=== PATIENT | female | born 1940 | race Caucasian/White ===

== ENCOUNTER 2018-06-28 11:59 | Outpatient (REF) | payer OTHER, SELFPAY ==
[2018-06-28 19:12] LABS: HCT 44.1 % (36.0-46.0); HGB 14.4 g/dL (12.0-15.5); Mean Corp. HGB Concentration 32.7 g/dL (32.0-36.0); Mean Corpuscular Volume 91.9 fL (80-95); Mean Platelet Volume 12.1 fL (8.0-11.0); Platelet Count 223 x1000/uL (130-400); RBC Distribution Width 13.3 % (11.7-14.6); White Blood Cell Count 5.26 k/cumm (4.4-10.8)
[2018-06-28 19:41] LABS: ALT 30 U/L (12-78); Anion Gap 7.2 mmol/L (3-11); BUN 14 mg/dL (7-18); CO2 28.8 mmol/L (21.0-32.0); CREATININE 0.89 mg/dL (0.55-1.02); Calcium 8.7 mg/dL (8.5-10.1); Chloride 105 mmol/L (98-107); Glucose 91 mg/dL (70-100); LDL CHOLESTEROL 118 mg/dL (<100); Potassium 4.1 mmol/L (3.5-5.1); Sodium 141 mmol/L (136-145); TSH 4.16 uIU/mL (0.358-3.74)
== END 2018-06-28 12:19 ==
LOC: NCHCN 11:59
PROVIDERS: PCP Internal Medicine; Visit Provider Internal Medicine
DX: E03.9 Hypothyroidism, unspecified (principal); E78.5 Hyperlipidemia, unspecified; M81.0 Age-related osteoporosis without current pathological fracture
CPT/HCPCS: 80048; 83721; 85027; 84443; 84460

== ENCOUNTER 2018-12-10 14:57 | Outpatient (REF) | payer OTHER, SELFPAY ==
[2018-12-10 19:33] LABS: HCT 43.7 % (36.0-46.0); HGB 14.3 g/dL (12.0-15.5); Mean Corp. HGB Concentration 32.7 g/dL (32.0-36.0); Mean Corpuscular Hemoglobin 29.7 pg (27.0-33.0); Mean Corpuscular Volume 90.9 fL (80-95); Mean Platelet Volume 12.9 fL (8.0-11.0); Platelet Count 190 x1000/uL (130-400); RBC 4.81 m/cumm (4.00-5.20); RBC Distribution Width 13.4 % (11.7-14.6); White Blood Cell Count 6.79 k/cumm (4.4-10.8)
[2018-12-10 19:50] LABS: Anion Gap 10.5 mmol/L (3-11); BUN 13 mg/dL (7-18); CO2 26.5 mmol/L (21.0-32.0); Calcium 8.5 mg/dL (8.5-10.1); Chloride 101 mmol/L (98-107); Estimated GFR 47.79 (mL/min/1.73m2); Glucose 169 mg/dL (70-100); Potassium 3.8 mmol/L (3.5-5.1); Sodium 138 mmol/L (136-145)
== END 2018-12-10 15:17 ==
LOC: NCHCN 14:57
PROVIDERS: PCP Internal Medicine; Visit Provider Nurse Practitioner Family
DX: R10.30 Lower abdominal pain, unspecified (principal); R31.9 Hematuria, unspecified
CPT/HCPCS: 80048; 85027; 87086

== ENCOUNTER 2019-07-06 13:04 | Outpatient (REF) | payer OTHER, SELFPAY ==
[2019-07-06 20:42] LABS: ALT 23 U/L (14-59); Anion Gap 8.6 mmol/L (3-11); BUN 13 mg/dL (7-18); CO2 30.4 mmol/L (21.0-32.0); Calcium 9.2 mg/dL (8.5-10.1); Chloride 104 mmol/L (98-107); Glucose 86 mg/dL (74-106); LDL CHOLESTEROL 121 mg/dL (<100); Potassium 4.3 mmol/L (3.5-5.1); Sodium 143 mmol/L (136-145); TSH 3.96 uIU/mL (0.36-3.74)
== END 2019-07-06 13:24 ==
LOC: NCHCN 13:04
PROVIDERS: PCP Internal Medicine; Visit Provider Internal Medicine
DX: E03.9 Hypothyroidism, unspecified (principal); M81.0 Age-related osteoporosis without current pathological fracture
CPT/HCPCS: 80048; 83721; 84443; 84460

== ENCOUNTER 2020-07-12 13:52 | Outpatient (REF) | payer OTHER, SELFPAY ==
--- OUTSIDE RECORDS SUMMARY | 2020-07-12 13:59 | XMS_ITS ---
:1940 Author Care Team Providers Name Role Phone PATI ADAMS NP Primary Care Provider [phone] MELISSA BURGESS General Surgeon [phone] Allergies Code Code System Name Reaction Severity Status Onset 5640 RxNorm Ibuprofen ? ? Active ? Medications Name Status Start Date Stop Date ? ? alendronate 70 mg tablet Completed 02/09/2019 020 Take 1 tablet every week by oral route. lovastatin 20 mg tablet Completed 02/09/2019 05/07/20 20 Take 1 tablet every day by oral route. Macrobid 100 mg capsule Completed ? 01/22/20 19 Take 1 capsule twice a day by oral route. Nasonex 50 mcg/actuation Binford Completed ? 0 01/21/2019 Binford 2 sprays twice a day by intranasal route. Nichols 3 Completed ? 01/21/2019 Synthroid 25 mcg tablet Completed 02/09/2019 05/07/20 20 Take 1 tablet every day by oral route. Notes: no meds per pt report Problems Name Status Onset Date Source ? Hypothyroidism Active 12/23/2018 ? Hyperlipidemia Active 12/23/2018 ? 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 Bleeding Hemorrhoids Active 12/23/2018 ? 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 Blood in Urine Active 12/23/2018 ? Osteoporosis Active 12/23/2018 ? Left Lower Quadrant Pain Active 12/23/2018 ? Family History of Breast Cancer Active 12/23/2018 ? History of Appendectomy Active 12/23/2018 ? Bunion Active 12/23/2018 ? Procedures Date Name Performed by ? 01/23/2019 Laparoscopy Diagnostic Information not a vailable Notes: small bowel obstruction 01/20/2019 Colonoscopy Information not avai lable Notes: Sigmoid diverticul osis, sigmoid stricture; 08/06/2007 normal examination except surgical changes in the cecum 04/03/1997 Appendectomy Information not avai lable Notes: acute appendicitis with periap pendicocele and cecal mass 05/07/2020 XR, Finger(s), 2 or More View [facility] Radiology (Internal) [address] [place] [address] (Work Place) 06/04/2020 XR, Finger(s), 2 or More View [facility] Radiology (Internal) [address] [place] [address] (Work Place) 07/02/2020 XR, Finger(s), 2 or More View [facility] Radiology (Internal) [address] [place] [address] (Work Place) Results Lab Results Date Name Specimen Result Interpretation Description Value Range Status Address ? 02/08/2019 CBC W/ Auto BLD - Wbc 6.6 5.0-10.0 Final Boyd Diff 10*3/uL 10*3/uL [facility] L ab (Internal) : [address] ? ? BLD - Rbc 4.52 4.10-5.30 Final Boyd 10*6/uL 10*6/uL [facility] L ab (Internal) : [address] ? ? BLD - Hgb 13.5 g/dL 12.0-16.0 Final Nort h g/dL [facility] L ab (Internal) : [address] ? ? BLD - Hct 41.3 % 37.0-47.0 Final [facility] L ab (Internal) : [address] ? ? BLD - Mcv 91.4 fL 80.0-96.0 Final [facility] L ab (Internal) : [address] ? ? BLD - Mch 29.9 pg 26.0-32.0 Final [facility] L ab (Internal) : [address] ? ? BLD - Mchc 32.7 g/dL 31.0-35.0 Final Nort h g/dL [facility] L ab (Internal) : [address] ? ? BLD - Rdw 13.7 % 11.5-14.5 Final [facility] L ab (Internal) : [address] ? ? BLD - Plt 224 130-450 Final North 10*3/uL 10*3/uL [facility] : [address] 02/08/2019 CMP, Serum S High g/r 117 mg/dL 74-106 Final North or Plasma mg/dL [facility] L ab (Internal) : [address] ? ? S - Bun 9 mg/dL 7-17 Final [facility] mg/dL [facility] L ab (Internal) : [address] ? ? S - Crea 0.60 0.52-1.04 Final North mg/dL mg/dL [facility] L ab (Internal) : [address] ? ? S - Ca 9.1 mg/dL 8.4-10.2 Final [facility] mg/dL [facility] L ab (Internal) : [address] ? ? S - Na 138 137-145 Final North mmol/L mmol/L [facility] L ab (Internal) : [address] ? ? S - K 3.9 3.5-5.1 Final [facility] mmol/L mmol/L [facility] L ab (Internal) : [address] ? ? S - Cl 104 98-107 Final [facility] mmol/L mmol/L [facility] L ab (Internal) : [address] ? ? S - Tco2 25.0 22.0-30.0 Final [facility] mmol/L mmol/L [facility] L ab (Internal) : [address] ? ? S - Tp 6.9 g/dL 6.3-8.2 Final [facility] g/dL [facility] L ab (Internal) : [address] ? ? S - Alb 4.1 g/dL 3.5-5.0 Final [facility] g/dL [facility] L ab (Internal) : [address] ? ? S - Tbil 1.0 mg/dL 0.2-1.3 Final [facility] mg/dL [facility] L ab (Internal) : [address] ? ? S - Alp 50 U/L 38-126 Final [facility] U/L [facility] L [facility] (Internal) : [address] ? ? S - Alt (Sgpt) 24 U/L 9-52 U/L Final [facility] L ab (Internal) : [address] ? ? S - Ast (Sgot) 22 U/L 14-36 U/L Final No rth [facility] L ab (Internal) : [address] 02/08/2019 Lipase, S - Lip 91 U/L 23-300 Final Boyd Serum or U/L [facility] L ab (Internal) : [address] 02/08/2019 Differential BLD High Polys 80 % 40-75 % Final Boyd , Manual, [facility] L ab (Internal) : [address] ? ? BLD - Bands 0 % 0-5 % Final [facility] L ab (Internal) : [address] ? ? BLD Low Lymphs 10 % 20-50 % Final [facility] L ab (Internal) : [address] ? ? BLD - Poinsett 9 % 2-10 % Final [facility] L ab (Internal) : [address] ? ? BLD - Eos 1 % 0-6 % Final [facility] L ab (Internal) : [address] ? ? BLD - Baso 0 % 0-1 % Final [facility] L ab (Internal) : [address] ? ? BLD - Atyp Lymph 0 % ? Final [facility] L ab (Internal) : [address] ? ? BLD - Plts, Est. adequate adequate Final N orth [facility] L ab (Internal) : [address] ? ? BLD - RBC normal normal Final [facility] L ab (Internal) : [address] 02/08/2019 Neutrophil BLD - Anc-manual 5.27 ? Marcela wilcox [facility] Count, 10*3/uL [facility] Lab (Anc), Blood (Int ernal): [address] 02/08/2019 Partial BLD - APTT (Op) 23 s 22-35 s Final Boyd Thromboplast Coun try in Time Hospital Lab (Internal) : [address] 02/08/2019 Prothrombin BLD - Pt 10.4 S 9.1-11.7 Final Boyd Time [facility] L ab (Internal) : [address] ? ? BLD - Inr 1.1 ? Final [facility] L ab (Internal) : [address] 02/08/2019 Troponin I, S - Trop <0.06 0.00-0.06 Final [facility] Serum or NG/mL NG/mL [facility] L ab (Internal) : [address] 02/08/2019 Urinalysis, UR - UA-color yellow pale Final Boyd Dipstick, yellow [facility] Lab (Internal) : [address] ? ? UR - UA-appear clear clear Final [facility] L ab (Internal) : [address] ? ? UR - UA-spec 1.010 1.003-1.0 Final [facility] Grav [address] [place] [address] L ab (Internal) : [address] ? ? UR - UA-pH 7.0 [pH] 4.6-8.0 Final Boyd [pH] [facility] L ab (Internal) : [address] ? ? UR - UA-leuk negative negative Final Nort h [facility] L ab (Internal) : [address] ? ? UR - UA-nitrite negative negative Final N orth [facility] L ab (Internal) : [address] ? ? UR - UA-prot negative negative Final [facility] L ab (Internal) : [address] ? ? UR - UA-gluc negative negative Final [facility] L ab (Internal) : [address] ? ? UR ABNORMAL UA-ketone 1+ negative Final No rth [facility] L ab (Internal) : [address] ? ? UR - UA-urobil normal normal Final [facility] L ab (Internal) : [address] ? ? UR - UA-bili negative negative Final [facility] L ab (Internal) : [address] ? ? UR - UA-blood negative negative Final [facility] (Internal) : [address] 01/24/2019 BMP, Serum S - g/r 96 mg/dL 74-106 Final North or Plasma mg/dL [facility] L [facility] (Internal) : [address] ? ? S Low Bun 5 mg/dL 7-17 Final [facility] mg/dL [facility] L [facility] (Internal) : [address] ? ? S - Crea 0.60 0.52-1.04 Final [facility] mg/dL mg/dL [facility] L ab (Internal) : [address] t ? ? S Low Ca 8.1 mg/dL 8.4-10.2 Final [facility] mg/dL [facility] (Internal) : [address] ? ? S - Na 139 137-145 Final North mmol/L mmol/L [facility] (Internal) : [address] ? ? S - K 3.5 3.5-5.1 Final [facility] mmol/L mmol/L [facility] L ab (Internal) : [address] ? ? S - Cl 102 98-107 Final [facility] mmol/L mmol/L [facility] L ab (Internal) : [address] t ? ? S High Tco2 32.0 22.0-30.0 Final [facility] mmol/L mmol/L [facility] L ab (Internal) : [address] 01/23/2019 BMP, Serum S High g/r 109 mg/dL 74-106 Final [facility] or Plasma mg/dL [facility] L ab (Internal) : [address] ? ? S Low Bun 6 mg/dL 7-17 Final [facility] mg/dL [facility] L ab (Internal) : [address] ? ? S - Crea 0.80 0.52-1.04 Final [facility] mg/dL mg/dL [facility] L ab (Internal) : [address] ? ? S Low Ca 8.2 mg/dL 8.4-10.2 Final [facility] mg/dL [facility] L ab (Internal) : [address] ? ? S - Na 138 137-145 Final [facility] mmol/L mmol/L [facility] L ab (Internal) : [address] ? ? S - K 3.9 3.5-5.1 Final [facility] mmol/L mmol/L [facility] L ab (Internal) : [address] son ? ? S - Cl 103 98-107 Final [facility] mmol/L mmol/L [facility] L ab (Internal) : [address] ? ? S High Tco2 31.0 22.0-30.0 Final [facility] mmol/L mmol/L [facility] L ab (Internal) : [address] 01/22/2019 CBC W/ Auto BLD - Wbc 5.1 5.0-10.0 Final [place] Diff 10*3/uL 10*3/uL [facility] L [facility] (Internal) : [address] son ? ? BLD Low Rbc 3.96 4.10-5.30 Final [facility] 10*6/uL 10*6/uL [facility] L ab (Internal) : [address] ? ? BLD Low Hgb 11.9 g/dL 12.0-16.0 Final Nort h g/dL [facility] L ab (Internal) : [address] ? ? BLD Low Hct 36.1 % 37.0-47.0 Final [facility] L ab (Internal) : [address] ? ? BLD - Mcv 91.2 fL 80.0-96.0 Final [facility] L ab (Internal) : [address] ? ? BLD - Mch 30.1 pg 26.0-32.0 Final Boyd pg [facility] L ab (Internal) : [address] ? ? BLD - Mchc 33.0 g/dL 31.0-35.0 Final Nort h g/dL [facility] L ab (Internal) : [address] ? ? BLD - Rdw 13.5 % 11.5-14.5 Final Boyd % [facility] L ab (Internal) : [address] ? ? BLD - Plt 142 130-450 Final North 10*3/uL 10*3/uL [facility] L ab (Internal) : [address] ? ? BLD - Anc 3.89 ? Final [facility] 10*3/uL [facility] L ab (Internal) : [address] ? ? BLD High Neutro 75.6 % 40.0-75.0 Final [facility] % [facility] L ab (Internal) : [address] ? ? BLD Low Lymph 11.7 % 20.0-50.0 Final Boyd % [facility] L ab (Internal) : [address] ? ? BLD High Poinsett 11.9 % 2.0-10.0 Final [facility] L ab (Internal) : [address] ? ? BLD Low Eos 0.2 % 1.0-6.0 % Final [facility] L ab (Internal) : [address] ? ? BLD - Baso 0.4 % 0.0-1.0 % Final [facility] L ab (Internal) : [address] ? ? BLD - Ig 0.2 % 0.0-0.9 % Final [facility] L ab (Internal) : [address] 01/22/2019 BMP, Serum S High g/r 110 mg/dL 74-106 Final North or Plasma mg/dL [facility] L ab (Internal) : [address] ? ? S - Bun 7 mg/dL 7-17 Final [facility] mg/dL [facility] L ab (Internal) : [address] ? ? S - Crea 0.70 0.52-1.04 Final [facility] mg/dL mg/dL [facility] L ab (Internal) : [address] ? ? S Low Ca 8.1 mg/dL 8.4-10.2 Final [facility] mg/dL [facility] L ab (Internal) : [address] ? ? S - Na 139 137-145 Final North mmol/L mmol/L [facility] L ab (Internal) : [address] ? ? S - K 3.7 3.5-5.1 Final [facility] mmol/L mmol/L [facility] L ab (Internal) : [address] t ? ? S - Cl 106 98-107 Final Boyd mmol/L mmol/L [facility] L ab (Internal) : [address] ? ? S - Tco2 29.0 22.0-30.0 Final Boyd mmol/L mmol/L [facility] L ab (Internal) : [address] 01/22/2019 Lactic Acid, S - La 0.8 0.7-2.1 Final Boyd Blood mmol/L mmol/L [facility] L ab (Internal) : [address] 01/21/2019 CBC W/ Auto BLD - Wbc 8.4 5.0-10.0 Final [facility] Diff 10*3/uL 10*3/uL [facility] (Internal) : [address] son ? ? BLD - Rbc 4.56 4.10-5.30 Final [facility] 10*6/uL 10*6/uL [facility] L ab (Internal) : [address] ? ? BLD - Hgb 13.7 g/dL 12.0-16.0 Final Nort h g/dL [facility] L ab (Internal) : [address] ? ? BLD - Hct 41.1 % 37.0-47.0 Final [facility] L ab (Internal) : [address] son ? ? BLD - Mcv 90.1 fL 80.0-96.0 Final [facility] L ab (Internal) : [address] ? ? BLD - Mch 30.0 pg 26.0-32.0 Final Boyd pg [facility] L ab (Internal) : [address] son ? ? BLD - Mchc 33.3 g/dL 31.0-35.0 Final Nort h g/dL [facility] L ab (Internal) : [address] ? ? BLD - Rdw 13.4 % 11.5-14.5 Final Boyd % [facility] L ab (Internal) : [address] ? ? BLD - Plt 167 130-450 Final [facility] 10*3/uL 10*3/uL [facility] L ab (Internal) : [address] 01/21/2019 CMP, Serum S High g/r 118 mg/dL 74-106 Final [facility] or Plasma mg/dL [facility] (Internal) : [address] ? ? S - Bun 12 mg/dL 7-17 Final [facility] mg/dL [facility] L ab (Internal) : [address] ? ? S - Crea 0.80 0.52-1.04 Final [facility] mg/dL mg/dL [facility] L ab (Internal) : [address] ? ? S - Ca 9.3 mg/dL 8.4-10.2 Final [facility] mg/dL [facility] L ab (Internal) : [address] ? ? S - Na 140 137-145 Final [facility] mmol/L mmol/L [facility] L ab (Internal) : [address] ? ? S - K 3.7 3.5-5.1 Final [facility] mmol/L mmol/L [facility] L ab (Internal) : [address] ? ? S - Cl 105 98-107 Final [facility] mmol/L mmol/L [facility] L ab (Internal) : [address] ? ? S - Tco2 28.0 22.0-30.0 Final [facility] mmol/L mmol/L [facility] L ab (Internal) : [address] ? ? S - Tp 6.9 g/dL 6.3-8.2 Final [facility] g/dL [facility] ab (Internal) : [address] ? ? S - Alb 4.0 g/dL 3.5-5.0 Final [facility] g/dL [facility] ab (Internal) : [address] ? ? S - Tbil 0.8 mg/dL 0.2-1.3 Final [facility] mg/dL [facility] L ab (Internal) : [address] ? ? S - Alp 51 U/L 38-126 Final [facility] U/L [facility] ab (Internal) : [address] ? ? S - Alt (Sgpt) 20 U/L 9-52 U/L Final [facility] ab (Internal) : [address] ? ? S - Ast (Sgot) 25 U/L 14-36 U/L Final No rth [facility] L ab (Internal) : [address] 01/21/2019 Lipase, S - Lip 111 U/L 23-300 Final Nort h Serum or U/L [facility] L ab (Internal) : [address] 01/21/2019 Differential BLD High Polys 79 % 40-75 % Final Boyd , Manual, [facility] L ab (Internal) : [address] ? ? BLD - Bands 0 % 0-5 % Final [facility] L ab (Internal) : [address] ? ? BLD Low Lymphs 14 % 20-50 % Final [facility] L ab (Internal) : [address] ? ? BLD - Poinsett 6 % 2-10 % Final [facility] L ab (Internal) : [address] ? ? BLD - Eos 1 % 0-6 % Final [facility] L ab (Internal) : [address] ? ? BLD - Baso 0 % 0-1 % Final [facility] L ab (Internal) : [address] ? ? BLD - Atyp Lymph 0 % ? Final [facility] ab (Internal) : [address] ? ? BLD - Plts, Est. adequate adequate Final N [facility] L ab (Internal) : [address] ? ? BLD - RBC normal normal Final [facility] L ab (Internal) : [address] 01/21/2019 Neutrophil BLD - Anc-manual 6.66 ? Marcela l Boyd Count, 10*3/uL [facility] Lab (Anc), Blood (Int ernal): [address] 01/21/2019 Troponin I, S - Trop <0.06 0.00-0.06 Final [facility] Serum or NG/mL NG/mL [facility] L ab (Internal) : [address] 01/21/2019 Urinalysis, UR - UA-color yellow pale Final [facility] Dipstick, yellow [facility] Lab (Internal) : [address] t ? ? UR - UA-appear clear clear Final [facility] ab (Internal) : [address] t ? ? UR - UA-spec 1.010 1.003-1.0 Final [place] Grav 35 [facility] ab (Internal) : [address] ? ? UR - UA-pH 7.0 [pH] 4.6-8.0 Final Boyd [pH] [facility] ab (Internal) : [address] ? ? UR - UA-leuk negative negative Final Nort h [facility] ab (Internal) : [address] ? ? UR - UA-nitrite negative negative Final N orth [facility] ab (Internal) : [address] ? ? UR - UA-prot negative negative Final Nort [facility] ab (Internal) : [address] t ? ? UR - UA-gluc negative negative Final [facility] ab (Internal) : [address] ? ? UR ABNORMAL UA-ketone 1+ negative Final No rth [facility] ab (Internal) : [address] ? ? UR - UA-urobil normal normal Final [facility] ab (Internal) : [address] ? ? UR - UA-bili negative negative Final [facility] ab (Internal) : [address] t ? ? UR ABNORMAL UA-blood trace negative Final [facility] ab (Internal) : [address] 01/21/2019 Urinalysis, UR - UA-WBC 0-3 [hpf] 0-3 [hpf] F inal Boyd Microscopic Count [facility] L ab (Internal) : [address] ? ? UR - UA-RBC 0-2 [hpf] 0-2 [hpf] Final [facility] ab (Internal) : [address] ? ? UR - UA-bacteri none seen none seen Final Boyd a [hpf] [hpf] [facility] ab (Internal) : [address] ? ? UR - UA-epithel rare none seen Final No rth ial [hpf] [hpf] [facility] L ab (Internal) : [address] ? ? UR - UA-mucus none seen none seen Final N orth [hpf] [hpf] [facility] (Internal) : [address] 01/20/2019 CBC W/ Auto BLD - Wbc 7.2 5.0-10.0 Final [place] Diff 10*3/uL 10*3/uL [facility] ab (Internal) : [address] ? ? BLD - Rbc 4.97 4.10-5.30 Final North 10*6/uL 10*6/uL [facility] L ab (Internal) : [address] ? ? BLD - Hgb 15.0 g/dL 12.0-16.0 Final Nort h g/dL [facility] L ab (Internal) : [address] ? ? BLD - Hct 44.6 % 37.0-47.0 Final [facility] L ab (Internal) : [address] ? ? BLD - Mcv 89.7 fL 80.0-96.0 Final Boyd fL [facility] L ab (Internal) : [address] ? ? BLD - Mch 30.2 pg 26.0-32.0 Final Boyd pg [facility] L ab (Internal) : [address] ? ? BLD - Mchc 33.6 g/dL 31.0-35.0 Final Nort h g/dL [facility] L ab (Internal) : [address] ? ? BLD - Rdw 13.2 % 11.5-14.5 Final North % [facility] L ab (Internal) : [address] ? ? BLD - Plt 185 130-450 Final North 10*3/uL 10*3/uL [facility] L ab (Internal) : [address] 01/20/2019 BMP, Serum S High g/r 161 mg/dL 74-106 Final North or Plasma mg/dL [facility] ab (Internal) : [address] ? ? S - Bun 9 mg/dL 7-17 Final North mg/dL [facility] L ab (Internal) : [address] ? ? S - Crea 0.70 0.52-1.04 Final Boyd mg/dL mg/dL [facility] L ab (Internal) : [address] ? ? S - Ca 9.4 mg/dL 8.4-10.2 Final Boyd mg/dL [facility] L ab (Internal) : [address] ? ? S - Na 137 137-145 Final Boyd mmol/L mmol/L [facility] L ab (Internal) : [address] ? ? S - K 3.6 3.5-5.1 Final [facility] mmol/L mmol/L [facility] L ab (Internal) : [address] t ? ? S - Cl 104 98-107 Final Boyd mmol/L mmol/L [facility] L ab (Internal) : [address] t ? ? S - Tco2 23.0 22.0-30.0 Final Boyd mmol/L mmol/L [facility] L ab (Internal) : [address] 01/20/2019 Differential BLD High Polys 88 % 40-75 % Final [facility] L ab (Internal) : [address] t ? ? BLD - Bands 1 % 0-5 % Final [facility] L ab (Internal) : [address] ? ? BLD Low Lymphs 7 % 20-50 % Final [facility] L ab (Internal) : [address] ? ? BLD - Poinsett 4 % 2-10 % Final [facility] L ab (Internal) : [address] t ? ? BLD - Eos 0 % 0-6 % Final [facility] L ab (Internal) : [address] t ? ? BLD - Baso 0 % 0-1 % Final [facility] L ab (Internal) : [address] t ? ? BLD - Atyp Lymph 0 % ? Final [facility] L ab (Internal) : [address] ? ? BLD - Plts, Est. adequate adequate [facility] ab (Internal) : [address] t ? ? BLD - RBC normal normal Final [facility] L ab (Internal) : [address] 01/20/2019 Neutrophil BLD - Anc-manual 6.41 ? Marcela Watters Count, 10*3/uL [facility] Lab (Anc), Blood (Int ernal): [address] 01/20/2019 Pathology TISS - Report results ? Final N orth Study below [facility] L ab (Internal) : [address] Past Encounters 07/02/2020 Injury of Finger Jase Zambrano MD: [address] [facility], [place] [address], Ph. 06/04/2020 Injury of Finger Jase Zambrano MD: [address] [facility], [address], [place] [address], Ph. 05/07/2020 Injury of Finger Jase Zambrano MD: [address] [facility], [place] [address], Ph. 02/15/2019 Melissa Burgess MD: [address] [place] [address], Ph. 01/12/2019 Melissa Burgess MD: [address] [place] [address], Ph. Social History Tobacco Smoking Status Never Smoker Vaccine List None recorded. Plan of Care Reminders Provider Appointments None ? ? recorded. Lab None ? ? recorded. Referral None ? ? recorded. Procedures None ? ? recorded. Surgeries None ? ? recorded. Imaging None ? ? recorded. Vitals 05/07/2020 11:15AM Consult 30 Height Weight BMI 147.32 cm 54.43 kg 25.1 kg/m2 02/15/2019 01:30PM Office 15 Height 145.42 cm 01/12/2019 01:30PM Office 15 Height 145.42 cm 12/13/2018 Height Weight BMI Blood Pressure 145.42 cm 58.65 kg 27.7 kg/m2 160/80 mm[Hg]
--- OUTSIDE RECORDS SUMMARY | 2020-07-12 13:59 | XMS_ITS | Encounter Summary ---
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 We will treat her conservatively with a splint and see her in a month. She may still scar down after a few months of static splinting. Should this fail then we could consider surgery however she may be better served by a formal fusion of the DIP joint versus reattachment of a contracted tendon. 1. Injury of finger ? XR, finger(s), 2 or more v iew ? finger splint, stack Discussion Note: None recorded.Patient educational handouts: No information available. Plan of Care Reminders Provider Appointments Follow up 08/27/2020 Eva ane 15 10:00AM MD [place] ? Return to on or around [facility] 01/19/2022 MD [facility] None ? ? recorded. Referral None ? ? recorded. Procedures None ? ? recorded. Surgeries None ? ? recorded. Imaging XR, 05/07/2020 [place] Finger(s), 2 or [facility] (Internal) Medications No Medications Reported Notes: no meds per pt report Medications Administered None recorded. Vitals Height Weight BMI 4 ft 10 in 119 lbs 16 oz 25.1 kg/m2 Results Lab Results None recorded. Allergies Code Code System Name Reaction Severity Onset 5640 RxNorm Ibuprofen ? ? ? Problems Name Status Onset Date Source ? [...] 05/07/2020 XR, Finger(s), [address] [facility] Radiology (Internal) [address] [place] [address] (Work Place) Vaccine List None recorded. Social History Tobacco Smoking Status Never Smoker Hand Dominance Right Advance directive Y Functional Status Unknown. Past Encounters 05/07/2020 Injury of Finger Jase Zambrano MD: [address] [place] [address], [address], [place] [address], Ph. History of Present Illness Note: <p>79-year-old patient who tells me that about 3 weeks ago on April 11, 2020 she fell striking her right fourth digit. She noticed that the distal phalanx was in flexion and persisted in flexion. She eventually went to the emergency room on May 04, 2020 and x-rays revealed her to have a mallet deformity with a bone fragment displaced proximally. She is here in follow-up care.

Past surgeries none medically she is in good health. She takes no medications has no allergies.

She does not smoke does not drink she is not presently working.
</p> Review of Systems None recorded. Physical Exam ? Notes: <p>Patient tells me she megan ures 4 foot 10 inches and reports a weight of 120 pounds. Examining her right fourth digit there is some swelling right over the DIP joint. And she cannot ac tively extend it. X-rays were reviewed and on the lateral we can see that the DIP joint is in 45 degrees of flexion and there is a small bony fragment over t he dorsal aspect of the middle phalangeal head.

Therefore pa tient is a bony mallet deformity. We have fitted her with a stack splint and x-rays were repeated. On the lateral the distal phalanx was reduced in anato fozia position but we could see that the bony fragment was still distracte d from its insertion.
</p>
--- OUTSIDE RECORDS SUMMARY | 2020-07-12 13:59 | XMS_ITS | Encounter Summary ---
:1940 Author Care Team Providers Name Role Phone Lauren Ferguson NP Primary Care Provider [phone] Castro Hernandez General Surgeon [phone] Reason for Visit Right finger(s) problem R ring finger mallet finger Assessment and Plan Assessment Note At this point patient can go to [facility] splinting only. During the day she can use the hand to tolerance. I explained that she may lose a bit of extension but she should slowly gain in flexion. There may be some residual overall stiffness of the joint but she should still have a functional range. We will see her final time in 2 months for clinical reassessment. We will get 2 views of the right fourth digit at that time. Total time 10 minutes 1. Injury of finger ? XR, finger(s), 2 or more v iew Discussion Note: None recorded.Patient educational handouts: No information available. Plan of Care Reminders Provider Appointments Follow up 08/27/2020 Eva treadwell 15 10:00AM MD [place] ? Return to on or around [facility] 01/19/2022 MD [facility] None ? ? recorded. Referral None ? ? recorded. Procedures None ? ? recorded. Surgeries None ? ? recorded. Imaging XR, 07/02/2020 [place] Finger(s), 2 or Hospital [facility] (Internal) Medications No Medications Reported Notes: no meds per pt report Medications Administered None recorded. Vitals None recorded. Results Lab Results None recorded. Allergies Code [...] appendicitis with periap pendicocele and cecal mass 06/04/2020 XR, Finger(s), 2 or [facility] Radiology (Internal) [address] [place] [id number] (Work Place) 07/02/2020 XR, Finger(s), 2 or [facility] (Internal) [address] [place] [id number] (Work Place) Vaccine List None recorded. Social History Tobacco Smoking Status Never Smoker Hand Dominance Right Advance directive Y Functional Status Unknown. Past Encounters 07/02/2020 Injury of Finger Jase Zambrano MD: [address] [facility], [address], [place] [address], Ph. 06/04/2020 Injury of Finger Jase Zambrano MD: [address] [facility], [address], [place] [address], Ph. History of Present Illness Note: <p>Follow-up for patient who injured her right hand fourth digit on April 03, 2020. Shesustained a bony mallet deformity. Bony fragment had migrated proximally. She was still treated withextension splinting and has done well. She has kept the splint on full-time.
</p> Review of Systems None recorded. Physical Exam ? Notes: <p>Patient seen and she is i n no acute distress

Splint was removed and the distal phalanx is in ful l extension. She has not tried yet to flex the finger into the palm and so when she does it today the DIP joint stays in extension.

X-rays wer e reviewed and on the lateral we can see the bony fragment is proximal to the joint by about 4 mm. The distal phalanx is centered on the middle phala nx. This both on the AP and lateral.
</p>
--- OUTSIDE RECORDS SUMMARY | 2020-07-12 13:59 | XMS_ITS | Encounter Summary ---
:1940 Author Care Team Providers Name Role Phone Lauren Ferguson NP Primary Care Provider [phone] Castro Hernandez General Surgeon [phone] Reason for Visit Right finger(s) problem R ring finger mallet finger Assessment and Plan Assessment Note We will continue with stack splinti ng. We applied a Band-Aid as she had done and then we applied the stack splint. It was held with paper tape. She will continue with full-time use for another 4 weeks. At th at time we will see her with a repeat film of the right fourth digit. At that time we will go to night splinting. 1. Injury of finger ? XR, finger(s), [...] Surgeries None ? ? recorded. Imaging XR, 06/04/2020 [place] [facility]s), 2 or Hospital [...] 05/07/2020 XR, Finger(s), 2 or [facility] Radiology (Internal) [address] [place] [address] (Work Place) 06/04/2020 XR, Finger(s), 2 or [facility] Radiology (Internal) [address] [place] [address] (Work Place) Vaccine List None recorded. Social History Tobacco Smoking Status Never Smoker Hand Dominance Right Advance directive Y Functional Status Unknown. Past Encounters 06/04/2020 Injury of Finger Jase Zambrano MD: [address] [facility], [address], [place] [address], Ph. 05/07/2020 Injury of Finger Jase Zambrano MD: [address] [facility], [address], [place] [address], Ph. History of Present Illness Note: <p>Follow-up for patient who injured her right hand fourth digit on April 11, 2020. Shesustained a mallet deformity. A bony fragment was identified which migrated proximal to the distal phalanx. Patient was seen by myself on May 07, 2020 and she was put in a stack splint. She has kept it on since.
</p> Review of Systems None recorded. Physical Exam ? Notes: <p>Patient in no acute distr ess. We examined the right hand fourth digit and we removed a stack splint. S he had placed a small Band-Aid around the DIP joint for a better fit with her splint. When the finger was examined with the splint removed the distal ph alanx no longer dropped into flexion.

X-rays we re reviewed and we could see that the bony fragment was still about 5 m m from its origin. It was proximal to the DIP joint. Clearly she maintaine d extension even with the fragment displaced.
</p>
[2020-07-12 15:45] LABS: ALT 24 U/L (14-59); Anion Gap 6.9 mmol/L (3-11); BUN 12 mg/dL (7-18); CO2 27.1 mmol/L (21.0-32.0); CREATININE 0.9 mg/dL (0.55-1.02); Calcium 8.7 mg/dL (8.5-10.1); Chloride 105 mmol/L (98-107); Estimated GFR 59.94 (mL/min/1.73m2); Glucose 87 mg/dL (74-106); LDL CHOLESTEROL 119 mg/dL (<100); Potassium 4.4 mmol/L (3.5-5.1); Sodium 139 mmol/L (136-145); TSH 2.38 uIU/mL (0.36-3.74)
== END 2020-07-12 14:12 ==
LOC: NCHCN 13:52
PROVIDERS: PCP Internal Medicine; Visit Provider Internal Medicine
DX: I10 Essential (primary) hypertension (principal); R78.5 Finding of other psychotropic drug in blood; M81.0 Age-related osteoporosis without current pathological fracture
CPT/HCPCS: 80048; 83721; 84443; 84460

== ENCOUNTER 2021-07-18 13:42 | Outpatient (REF) | payer MEDICARE, SELFPAY ==
[2021-07-18 19:43] LABS: ALT 20 U/L (14-59); Anion Gap 10.5 mmol/L (3-11); BUN 15 mg/dL (7-18); CO2 26.5 mmol/L (21.0-32.0); CREATININE 0.7 mg/dL (0.55-1.02); Calcium 8.9 mg/dL (8.5-10.1); Chloride 105 mmol/L (98-107); Glucose 90 mg/dL (74-106); LDL CHOLESTEROL 117 mg/dL (<100); Potassium 4.2 mmol/L (3.5-5.1); Sodium 142 mmol/L (136-145); TSH 2.04 uIU/mL (0.36-3.74)
== END 2021-07-18 13:43 | disposition home or self-care (01) ==
LOC: NCHCN 13:42
PROVIDERS: PCP Internal Medicine; Visit Provider Internal Medicine
DX: I10 Essential (primary) hypertension (principal); E03.9 Hypothyroidism, unspecified; E78.5 Hyperlipidemia, unspecified
CPT/HCPCS: 80048; 83721; 84443; 84460

== ENCOUNTER 2021-09-23 20:46 | Outpatient (REF) | payer MEDICARE, SELFPAY ==
--- NOTE | 2021-09-23 03:25 | PAPFT_PTH ---
PATIENT: Lamar Segovia LOC: [facility]#:[id number] AGE/SX: 81/F ROOM: RE09/23/[address]: Willie Will : 1940 BED: DIS: 09/23/2021 SPEC #: [id number] RECD: 09/24/21 12:56 STATUS: ISH REHussein #: [id number] JELANI: 09/23/21 03:[address]: Willie Will DEPT: [facility] Cytology RECD BY: Annalise Dominique Tissues: 1 - CX/ENDOCX FOR PAP SMEARS Procedures: PAP THIN PREP/UVM Screening Comments: [id number]
[2021-09-23 22:11] LABS: HCT 45.1 % (36.0-46.0); HGB 14.3 g/dL (11.2-15.7); MCH 29.5 pg (27.0-33.0); MCHC 31.7 % (32.0-36.0); MPV 11.9 fL (8.0-11.0); Platelet Count 204 10^3/uL (130-400); RBC 4.85 10^6/uL (3.93-5.22); RDW 12.9 % (11.7-14.6); RDW-SD 43.9 fL; WBC 4.68 10^3/uL (4.4-10.8)
== END 2021-09-23 20:47 | disposition home or self-care (01) ==
LOC: NCHCN 20:46
PROVIDERS: PCP Internal Medicine; Visit Provider Internal Medicine
DX: Z12.4 Encounter for screening for malignant neoplasm of cervix (principal); N95.0 Postmenopausal bleeding
CPT/HCPCS: 85027; 88142; 85610; 85730

== ENCOUNTER 2022-08-06 17:57 | Outpatient (REF) | payer MEDICARE, SELFPAY ==
[2022-08-06 21:25] LABS: Anion Gap 7.2 mmol/L (3-11); BUN 17 mg/dL (7-18); CO2 28.8 mmol/L (21.0-32.0); CREATININE 0.7 mg/dL (0.55-1.02); Calcium 9.4 mg/dL (8.5-10.1); Calculated LDL 117 mg/dL (<100); Chloride 107 mmol/L (98-107); Cholesterol 210 mg/dL (<200); Estimated GFR 85.23 (mL/min/1.73m2); Glucose 94 mg/dL (74-106); HDL Cholesterol 74 mg/dL (40-60); Potassium 4.3 mmol/L (3.5-5.1); Sodium 143 mmol/L (136-145); TSH 2.22 uIU/mL (0.36-3.74); Triglyceride 95 mg/dL (<150)
[2022-08-06 21:38] LABS: Vitamin D 25 Total 16.3 ng/mL (30-100)
== END 2022-08-06 17:58 | disposition home or self-care (01) ==
LOC: NCHCN 17:57
PROVIDERS: PCP Internal Medicine; Visit Provider Internal Medicine
DX: I10 Essential (primary) hypertension (principal); E03.9 Hypothyroidism, unspecified; R42 Dizziness and giddiness; E55.9 Vitamin D deficiency, unspecified
CPT/HCPCS: 80048; 80061; 82306; 84443

== ENCOUNTER 2023-08-07 15:58 | Outpatient (REF) | payer MEDICARE, SELFPAY ==
[2023-08-07 19:28] LABS: Vitamin D 25 Total 23.9 ng/mL (30-100)
[2023-08-07 19:50] LABS: ALT 23 U/L (14-59); BUN 13 mg/dL (7-18); CREATININE 0.9 mg/dL (0.55-1.02); Calcium 9.5 mg/dL (8.5-10.1); Calculated LDL 116 mg/dL (<100); Chloride 104 mmol/L (98-107); Cholesterol 207 mg/dL (<200); Estimated GFR 62.65 (mL/min/1.73m2); Glucose 94 mg/dL (74-106); HDL Cholesterol 77 mg/dL (40-60); Potassium 4.4 mmol/L (3.5-5.1); Sodium 141 mmol/L (136-145); TSH 2.86 uIU/mL (0.36-3.74); Triglyceride 72 mg/dL (<150)
[2023-08-10 08:58] LABS: Parathyroid Hormone,Intact 59 pg/mL (19-88)
== END 2023-08-07 15:59 | disposition home or self-care (01) ==
LOC: NCHCN 15:58
PROVIDERS: PCP Internal Medicine; Visit Provider Internal Medicine
DX: E78.5 Hyperlipidemia, unspecified (principal); I10 Essential (primary) hypertension; E03.9 Hypothyroidism, unspecified; M81.0 Age-related osteoporosis without current pathological fracture
CPT/HCPCS: 80048; 80061; 82306; 83970; 84443; 84460

== ENCOUNTER 2024-08-25 12:06 | Outpatient (REF) | payer MEDICARE, SELFPAY ==
[2024-08-25 20:05] LABS: BUN 18 mg/dL (7-18); CREATININE 0.9 mg/dL (0.55-1.02); Calcium 9.3 mg/dL (8.5-10.1); Chloride 105 mmol/L (98-107); Estimated GFR 62.26 (mL/min/1.73m2); Glucose 98 mg/dL (74-106); Potassium 4.1 mmol/L (3.5-5.1); Sodium 143 mmol/L (136-145); TSH 3.25 uIU/mL (0.36-3.74)
[2024-08-25 20:24] LABS: Calculated LDL 112 mg/dL (<100); Cholesterol 214 mg/dL (<200); HDL Cholesterol 93 mg/dL (>or=50); Triglyceride 49 mg/dL (<150)
== END 2024-08-25 12:07 | disposition home or self-care (01) ==
LOC: NCHCN 12:06
PROVIDERS: PCP Internal Medicine; Visit Provider Internal Medicine
DX: E03.9 Hypothyroidism, unspecified (principal); E78.5 Hyperlipidemia, unspecified; I10 Essential (primary) hypertension
CPT/HCPCS: 80048; 80061; 84443